=== PATIENT | female | born 1950 | race African-American/Black ===

== ENCOUNTER 2017-07-31 10:21 | Inpatient (IN) | payer OTHER ==
[~2017-07-31] VITALS: Ht 157.5 cm; Wt 89.3 kg
--- NOTE | 2017-07-31 11:07 | ERD ---
ER Documentation Chief Complaint Chief Complaint sob HPI The patient is a 67-year-old female, presenting to the ER because of pleuritic chest pain for 1 day, worse when she lays down. She denies similar symptoms previously, denies fever, chills, neck pain, chest pain with exertion/vomiting/ diaphoresis, abdominal pain, vomiting, dysuria, diarrhea. She is unable to lay down flat without having shortness of breath.She denies paroxysmal nocturnal dyspnea. She does not smoke nor drink Past medical history: Hypertension, hypothyroidism Past Surgical history left breast lumpectomy ROS All systems reviewed and are negative except as per history of present illness. Medications Home Meds Reported Medications Metoprolol Succinate* (Toprol XL*) 100 Mg Tab.sr.24h, 100 MG PO DAILY, #30 TAB 07/31/17 Levothyroxine Sodium* (Synthroid*) 125 Mcg Tablet, 125 MCG PO BEFORE BREAKFAST, #30 TAB 07/31/17 Allergies Allergies: Coded Allergies: No Known Allergy (Unverified , 07/31/17) Physical Exam Vitals Vital Signs Date Time Temp Pulse Resp B/P Pulse Ox O2 Delivery O2 Flow Rate FiO2 07/31/17 15:40 94 20 148/92 99 Nasal Cannula 2.0 07/31/17 12:40 88 22 157/90 98 Room Air 07/31/17 11:14 87 21 148/88 100 Room Air 07/31/17 10:34 100.0 89 18 183/93 98 Physical Exam Const: No acute distress. Head: Atraumatic. Eyes: Normal Conjunctiva. ENT: Normal External Ears, Nose and Mouth. Neck: Full range of motion. No meningismus. Resp: Bibasilar crackle Cardio: Regular rate and rhythm. Abd: Soft, non distended, normal bowel sounds, non tender. Skin: No petechiae or rashes. Back: No midline or flank tenderness. Ext: No cyanosis, or edema. No calf tenderness Neur: Awake and alert. No focal deficit Psych: Normal Mood and Affect. Result Diagram: 07/31/17 1114 07/31/17 1114 Results 24 hrs Laboratory Tests Test 07/31/17 11:14 White Blood Count 10.910^3/ul Red Blood Count 4.0210^6/ul Hemoglobin 11.9g/dl Hematocrit 37.8% Mean Corpuscular Volume 94.0fl Mean Corpuscular Hemoglobin 29.6pg Mean Corpuscular Hemoglobin Concent 31.5g/dl Red Cell Distribution Width 13.0% Platelet Count 77969^3/UL Mean Platelet Volume 9.0fl Neutrophils % 72.3% Lymphocytes % 19.9% Monocytes % 6.6% Eosinophils % 0.6% Basophils % 0.3% Nucleated Red Blood Cells % 0.0/100WBC Neutrophils # 7.910^3/ul Lymphocytes # 2.210^3/ul Monocytes # 0.710^3/ul Eosinophils # 0.110^3/ul Basophils # 0.010^3/ul Nucleated Red Blood Cells # 0.010^3/ul Prothrombin Time 12.8Sec Prothrombin Time Ratio 1.0 INR International Normalized Ratio 0.96 Activated Partial Thromboplast Time 32.0Sec D-Dimer 1596.39ng/ml D-Dimer Comment Sodium Level 144mmol/L Potassium Level 3.3mmol/L Chloride Level 104mmol/L Carbon Dioxide Level 30mmol/L Anion Gap 13 Blood Urea Nitrogen 10mg/dl Creatinine 1.06mg/dl Glucose Level 108mg/dl Calcium Level 9.1mg/dl Troponin I < 0.012ng/ml B-Type Natriuretic Peptide 417PG/ML Current Medications Medications (Trade) Dose Ordered Sig/Artem Route PRN Reason Start Time Stop Time Status Last Admin Dose Admin Potassium Chloride (Klor-Con 20) 40 meq ONCE STAT PO 07/31/17 13:09 07/31/17 13:10 DC 07/31/17 14:10 Potassium Chloride (Klor-Con 20) 20 meq ONCE STAT PO 07/31/17 13:09 07/31/17 13:10 DC 07/31/17 14:10 Furosemide (Lasix) 40 mg ONCE ONCE IV 07/31/17 13:30 07/31/17 13:31 DC 07/31/17 14:11 IV Flush 10 ml 10 ml STK-MED ONCE .ROUTE 07/31/17 13:41 07/31/17 13:42 DC 07/31/17 14:06 Sodium Chloride 100 ml @ ud STK-MED ONCE .ROUTE 07/31/17 13:41 07/31/17 13:42 DC 07/31/17 14:07 Iohexol (Omnipaque) 100 ml @ ud STK-MED ONCE .ROUTE 07/31/17 13:41 07/31/17 13:42 DC 07/31/17 14:07 Aspirin (Ecotrin) 325 mg ONCE ONCE PO 07/31/17 15:00 07/31/17 15:01 DC 07/31/17 15:22 Procedures/MDM [place] [id number] Radiology Main Line: [phone] DIAGNOSTIC IMAGING REPORT Patient: ROSA MARIA HERNANDEZ : 1950 Age: 67 Sex: F MR #: [id number] DOS: 07/31/17 1117 Ordering MD: VIKAS LIVINGSTON MD Location: E/R Room/Bed: PROCEDURE: Chest x-ray CLINICAL INDICATION: Shortness of breath TECHNIQUE: Chest single view COMPARISON: None FINDINGS: The heart is top normal in size. Pulmonary vessels are borderline prominent. There is minimal left lower lobe atelectasis. Lungs otherwise clear. No large pleural fluid is identified. Bony thorax is unremarkable. IMPRESSION: 1. Heart top normal in size. 2. Central pulmonary vessels borderline prominent. Recommend correlation for vascular congestion 3. Minimal left lower lobe atelectasis RPTAT: HH .Andrea Friedman MD, MD Date Time Electronically viewed and signed by .Andrea Friedman MD, MD on 07/31/2017 12:00 .W/ CC: VIKAS LIVINGSTON MD EK hrs. Read by emergency physician Rate/Rhythm: Normal Sinus Rhythm 86 beats/min QRS, ST, T-waves: No ST elevation, nonspecific T abnormality Impression: Abnormal EKG EK hrs. Read by emergency physician Rate/Rhythm: Normal Sinus Rhythm 87 beats/min QRS, ST, T-waves: No ST elevation, nonspecific T abnormality Impression: MEDICAL MAKING DECISION: The patient is a 67-year-old female, presenting to the ER because of acute CHF, acute hypokalemia. She was treated with Lasix 40 mg IV for acute CHF and potassium chloride 60 mg p.o. for acute hypokalemia, Aspirin 325 mg p.o. for acute chest pain with good response. The differential diagnoses considered include but are not limited to ACS,asthma , COPD, pneumonia, pulmonary embolus, pleural effusion, congestive heart failure. Departure Diagnosis: Primary Impression: CHF (congestive heart failure) Additional Impressions: Chest pain Hypokalemia Anemia Condition: Stable Comments I discussed the findings with the patient. I discussed the patient with her physician Dr. Bingham who was made aware of the lab, the treatment, the patient condition. The patient is admitted to [facility] at 2:25 pm VIKAS LIVINGSTON MD Jul 31, 2017 11:07
[2017-07-31] MEDS ORDERED: LEVO125T PO (11:59)
[2017-07-31] MEDS ORDERED: METO-336 PO (11:59)
--- NOTE | 2017-07-31 12:01 | RADRPT ---
PROCEDURE: Chest x-ray CLINICAL INDICATION: Shortness of breath TECHNIQUE: Chest single view COMPARISON: None FINDINGS: The heart is top normal in size. Pulmonary vessels are borderline prominent. There is minimal left l ower lobe atelectasis. Lungs otherwise clear. No large pleural fluid is identified. Bony thorax is u nremarkable. IMPRESSION: 1. Heart top normal in size. 2. Central pulmonary vessels borderline prominent. Recommend correlation for vascular congestion 3. Minimal left lower lobe atelectasis RPTAT: HH .Andrea Friedman MD, MD Date Time Electronically viewed and signed by .Andrea Friedman MD, on 07/31/2017 12:00 .W/
[2017-07-31 12:13] LABS: BASOPHILS % 0.3 % (0.0-2.0); EOSINOPHILS # 0.1 10^3/ul (0.0-0.5); EOSINOPHILS % 0.6 % (0.0-7.0); HEMATOCRIT 37.8 % (37.0-47.0); HEMOGLOBIN 11.9 g/dl (12.0-16.0); LYMPHOCYTES # 2.2 10^3/ul (0.8-2.9); LYMPHOCYTES % 19.9 % (15.0-51.0); MEAN CORPUSCULAR HEMOGLOBIN 29.6 pg (29.0-33.0); MEAN CORPUSCULAR HGB CONC 31.5 g/dl (32.0-37.0); MONOCYTE # 0.7 10^3/ul (0.3-0.9); MONOCYTES % 6.6 % (0.0-11.0); NEUTROPHIL # 7.9 10^3/ul (1.6-7.5); NEUTROPHILS % 72.3 % (39.0-77.0); PLATELET COUNT 252 10^3/UL (140-415); RED BLOOD COUNT 4.02 10^6/ul (4.20-5.40); WHITE BLOOD COUNT 10.9 10^3/ul (4.8-10.8)
[2017-07-31 12:36] LABS: ANION GAP 13 (8-16); BLOOD UREA NITROGEN 10 mg/dl (7-20); CALCIUM 9.1 mg/dl (8.4-10.2); CARBON DIOXIDE 30 mmol/L (21-31); CHLORIDE 104 mmol/L (97-110); CREATININE 1.06 mg/dl (0.44-1.00); GLUCOSE 108 mg/dl (70-220); INR 0.96; POTASSIUM 3.3 mmol/L (3.5-5.1); PROTIME 12.8 Sec (12.2-14.2); SODIUM 144 mmol/L (135-144)
[2017-07-31 12:47] LABS: B-TYPE NATRIURETIC PEPTIDE 417 PG/ML (0-125)
[2017-07-31 12:51] LABS: D-DIMER 1596.39 ng/ml (<460)
[2017-07-31 12:53] LABS: TROPONIN-I < 0.012 ng/ml (0.00-0.12)
[2017-07-31] MEDS ORDERED: POTASSIUM CHLORIDE (SR) 20 MEQ TAB PO STA ×2 (13:09)
[2017-07-31] MEDS ORDERED: FUROSEMIDE 40 MG INJ IV ONE (13:30)
[2017-07-31] MEDS ORDERED: SOD CHLORIDE 0.9% 100 ML ONE (13:41)
[2017-07-31] MEDS ORDERED: IOHEXOL 100 ML ONE (13:41)
--- NOTE | 2017-07-31 14:13 | RADRPT ---
PROCEDURE: CTA Chest and pulmonary angiogram. CLINICAL INDICATION: Chest pain and shortness of breath.. TECHNIQUE: CT scan of the chest and CT pulmonary angiogram was performed on the multi-slice volume tric CT scanner. High-resolution thin slice coronal and sagittal imaging was obtained from the axia l source images following the uncomplicated intravenous administration of 95 cc of Omnipaque 350 con trast. The images were reviewed on a PACS workstation. 3-D post-processing performed. DLP = 608.2 mGy-cm. CTDIVol = 17.6, 18.1 mGy. One or more of the following dose reduction techniques were used: Automated exposure control. Adjustment of the mA and/or kV according to patient size. Use of iterative reconstruction technique. COMPARISON: No prior studies are available for comparison. FINDINGS: CT chest: The lungs are clear of acute infiltrates, edema or masses. There is trace right pleural effusion and bilateral basilar atelectasis.. Mediastinum and hilum show no significant mass or adenopathy. The vascular structures of the mediastinum are normal in course and caliber. The heart size is borderl ine large without pericardial thickening or effusion. The axillary, subpectoral, and supraclavicula r regions are unremarkable. Imaging obtained through the upper abdomen is equally unremarkable. Th e adrenal glands are symmetrically normal. Chest wall is unremarkable. The spine is unremarkable. CT pulmonary angiogram: The main pulmonary artery, bilateral pulmonary arterial trunks, lobar and segmental branches of the pulmonary arteries show no evidence of filling defect and/or pulmonary emboli. The aorta is normal in caliber without aneurysm or dissection. IMPRESSION: 1. No evidence of pulmonary emboli, aortic aneurysm or dissection.. 2. Trace right pleural effusion and bibasilar atelectasis.. RPTAT: GG .Morris Alvarez MD, MD Date Time Electronically viewed and signed by .Morris Alvarez MD, MD on 07/31/2017 14:12 .L/
[2017-07-31] MEDS ORDERED: ASPIRIN (EC) 325 MG TAB PO ONE (15:00)
[2017-07-31 17:15] VITALS: PULSE 98
[2017-07-31 17:30] VITALS: BP 144/82; PULSE 90; RESP 20; BMI 36.0
[2017-07-31] MEDS ORDERED: LORAZEPAM 0.5 MG TAB PO PRN (18:30)
[2017-07-31] MEDS ORDERED: NITROGLYCERIN (SL) 0.4 MG TAB SL PRN (18:30)
[2017-07-31] MEDS ORDERED: MAGNESIUM HYDROXIDE 30ML CUP PO PRN (18:30)
[2017-07-31] MEDS ORDERED: ONDANSETRON 4 MG INJ IV PRN (18:30)
[2017-07-31] MEDS ORDERED: DOCUSATE SODIUM 100 MG CAP PO PRN (18:30)
[2017-07-31] MEDS ORDERED: ACETAMINOPHEN 325 MG TAB PO PRN (18:30)
[2017-07-31] MEDS ORDERED: BISACODYL 10 MG SUPP PR PRN (18:30)
[2017-07-31] MEDS ORDERED: NACL 0.9% 3 ML SYG IV SCH (18:30)
--- NOTE | 2017-07-31 18:35 | HP ---
Date/Time of Note Date/Time of Note DATE: 07/31/17 TIME: 18:35 Assessment/Plan VTE Prophylaxis VTE Prophylaxis Intervention: LMWH Assessment/Plan Assessment/Plan 67-year-old female with: 1. Atypical, pleuritic, right-sided chest pain for 1 day, CT of the chest negative for PE however showing a small right pleural effusion that could be causing some pleurisy. Continue pain control We will complete rule out for acute coronary syndrome, 2D echocardiogram also pending. Monitor heart rate and blood pressure, reintroduce blood pressure medications as needed. Check fasting lipid panel, TSH, free T4. 2. Right lower extremity edema, check Doppler of the lower extremity to rule out DVT. 3. Renal insufficiency, hypokalemia acute kidney injury versus chronic kidney disease, patient also has been on multiple medication including hydrochlorothiazide according to family, she may be having some prerenal azotemia. Of note she was given Lasix in the emergency department today. She was also given potassium supplementation. We will check her renal function in a.m. to reevaluate. 4. Hypertension: We will resume medications by a.m., will resume beta-blockers first, patient was on other additional medication for blood pressure control including diuretics. 5. Hypothyroidism: Recheck thyroid function testing, continue current levothyroxine dose Prophylaxis: Lovenox for DVT prophylaxis, Pepcid for GI prophylaxis Disposition: Follow-up additional imaging ordered, follow-up additional laboratory data in a.m. If no acute finding likely discharge home tomorrow. HPI/ROS Admit Date/Time Admit Date/Time Jul 31, 2017 at 14:40 Hx of Present Illness Chief complaint: Chest pain History of presenting illness: This is 67-year-old female with history of hypertension, hypothyroidism, noncompliance with blood pressure medications who presented to the emergency department with acute onset of right-sided pleuritic chest pain yesterday. The pain seems to be worse when she is lying down, patient also reports some orthopnea. Patient reports that it is a sharp pain, right-sided. No nausea, vomiting, fevers, chills, or diaphoresis She has no previous history of coronary artery disease or congestive heart failure. Her BNP was in the 400s, she did receive Lasix 1 dose. She also reports right lower extremity edema. Her d-dimer came back elevated therefore she had a CT angiogram done in the ER which ruled out pulmonary embolus, there is no described other pulmonary abnormalities per se. Dopplers of the lower extremities are pending. Cardiac enzymes are negative 1, 2 more sets are pending. Will monitor blood pressure again patient has not been compliant with any of her blood pressure medications. Will resume her Toprol XL in the morning if needed. She was noted to have low-grade temperature today with a T-max of 100.6, Tylenol as needed, check ESR. Also recheck her thyroid function testing. 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 No history of coronary artery disease. ROS Constitutional: no complaints Respiratory: no complaints Cardiovascular: chest pain (Pleuritic), orthopenea Gastrointestinal: no complaints Genitourinary: no complaints Musculoskeletal: no complaints Skin: no complaints Neurologic: no complaints Endocrine: no complaints PMH/Family/Social Past Medical History Hypertension, noncompliant with medications except for maybe Toprol-XL Hypothyroidism Past Surgical History Status post tubal ligation, remotely Family History Significant Family History: no pertinent family hx Social History Alcohol Use: none Smoking Status: Never smoker Drug Use: none Exam/Review of Systems Vital Signs Vitals Vital Signs Date Time Temp Pulse Resp B/P Pulse Ox O2 Delivery O2 Flow Rate FiO2 07/31/17 17:15 98 07/31/17 15:40 20 148/92 99 Nasal Cannula 2.0 07/31/17 10:34 100.0 Exam Constitutional: alert, oriented, well developed Respiratory: clear to auscultation, normal air movement Cardiovascular: nl pulses, regular rate and rhythm Gastrointestinal: non-tender, soft Musculoskeletal: swelling (Slight noted edema of the right lower extremity) Extremities: normal pulses Neurological: COMPRESSED GAS TESTER II-XII intact, nl mental status, nl speech, nl strength Labs Result Diagram: 07/31/17 1114 07/31/17 1114 Procedures Procedures PROCEDURE: CTA Chest and pulmonary angiogram. CLINICAL INDICATION: Chest pain and shortness of breath.. TECHNIQUE: CT scan of the chest and CT pulmonary angiogram was performed on the multi-slice volumetric CT scanner. High-resolution thin slice coronal and sagittal imaging was obtained from the axial source images following the uncomplicated intravenous administration of 95 cc of Omnipaque 350 contrast. The images were reviewed on a PACS workstation. 3-D post-processing performed. DLP = 608.2 mGy-cm. CTDIVol = 17.6, 18.1 mGy. One or more of the following dose reduction techniques were used: Automated exposure control. Adjustment of the mA and/or kV according to patient size. Use of iterative reconstruction technique. COMPARISON: No prior studies are available for comparison. FINDINGS: CT chest: The lungs are clear of acute infiltrates, edema or masses. There is trace right pleural effusion and bilateral basilar atelectasis.. Mediastinum and hilum show no significant mass or adenopathy. The vascular structures of the mediastinum are normal in course and caliber. The heart size is borderline large without pericardial thickening or effusion. The axillary, subpectoral, and supraclavicular regions are unremarkable. Imaging obtained through the upper abdomen is equally unremarkable. The adrenal glands are symmetrically normal. Chest wall is unremarkable. The spine is unremarkable. CT pulmonary angiogram: The main pulmonary artery, bilateral pulmonary arterial trunks, lobar and segmental branches of the pulmonary arteries show no evidence of filling defect and/or pulmonary emboli. The aorta is normal in caliber without aneurysm or dissection. IMPRESSION: 1. No evidence of pulmonary emboli, aortic aneurysm or dissection.. 2. Trace right pleural effusion and bibasilar atelectasis.. PROCEDURE: Chest x-ray CLINICAL INDICATION: Shortness of breath TECHNIQUE: Chest single view COMPARISON: None FINDINGS: The heart is top normal in size. Pulmonary vessels are borderline prominent. There is minimal left lower lobe atelectasis. Lungs otherwise clear. No large pleural fluid is identified. Bony thorax is unremarkable. IMPRESSION: 1. Heart top normal in size. 2. Central pulmonary vessels borderline prominent. Recommend correlation for vascular congestion 3. Minimal left lower lobe atelectasis RPTAT: HH .Andrea Friedman MD, Date Time Electronically viewed and signed by .Andrea Friedman MD, on 07/31/2017 12:00 EKG: Normal sinus rhythm, nonspecific T-wave, no acute or chronic ischemic changes. YFN BARRON Jul 31, 2017 18:35
[2017-07-31 18:55] VITALS: Ht 157.5 cm; Wt 89.3 kg
[2017-07-31 19:30] LABS: CREATINE KINASE 82 IU/L (23-200)
[2017-07-31 19:45] LABS: CK-MB < 0.22 ng/ml (0.0-2.4); TROPONIN-I < 0.012 ng/ml (0.00-0.12)
[2017-07-31 20:00] VITALS: BP 123/75; RESP 20
[2017-07-31 20:51] VITALS: PULSE 96
--- NOTE | 2017-07-31 21:11 | RADRPT ---
PROCEDURE: US DVT. CLINICAL INDICATION: Bilateral lower extremity pain and swelling. TECHNIQUE: Multiple longitudinal and transverse images of the bilateral lower extremity veins were obtained with bellamy scale and color Doppler imaging. 2D grayscale measurements with compression, co aneesh Doppler flow, and augmentation was performed. The calf veins were interrogated as well. COMPARISON: No prior studies are available for comparison. FINDINGS: The bilateral common femoral, superficial femoral and popliteal veins are normally compressible thro ughout. Color flow demonstrates normal filling of the vessel. Normal waveforms are visualized and there is normal response to augmentation. The calf veins are visualized and are equally unremarkabl e. IMPRESSION: 1. No evidence of a deep vein thrombosis involving either lower extremity. RPTAT: HFN .Kirill Ballard MD, Date Time Electronically viewed and signed by .Kirill Ballard MD, MD on 07/31/2017 21:11 .N/
[2017-07-31] MEDS: FAMOTIDINE 20 MG TAB PO SCH (22:44)
[2017-07-31] MEDS: METOPROLOL 50 MG TAB PO SCH (22:47)
[2017-08-01] VITALS (12 sets, daily range): BP systolic 108–132; BP diastolic 65–81; PULSE 71–88; RESP 17–20
[2017-08-01 01:38] LABS: CREATINE KINASE 71 IU/L (23-200)
[2017-08-01 02:09] LABS: CK-MB < 0.22 ng/ml (0.0-2.4); TROPONIN-I < 0.012 ng/ml (0.00-0.12)
[2017-08-01] MEDS: LEVOTHYROXINE 125 MCG TAB PO SCH (07:00)
[2017-08-01 08:27] LABS: BASOPHILS % 0.3 % (0.0-2.0); EOSINOPHILS # 0.1 10^3/ul (0.0-0.5); EOSINOPHILS % 0.9 % (0.0-7.0); HEMATOCRIT 33.6 % (37.0-47.0); HEMOGLOBIN 11.1 g/dl (12.0-16.0); LYMPHOCYTES # 1.8 10^3/ul (0.8-2.9); LYMPHOCYTES % 21.3 % (15.0-51.0); MEAN CORPUSCULAR HEMOGLOBIN 30.8 pg (29.0-33.0); MEAN CORPUSCULAR VOLUME 93.3 fl (82.0-101.0); MEAN PLATELET VOLUME 9.1 fl (7.4-10.4); MONOCYTE # 0.8 10^3/ul (0.3-0.9); NEUTROPHIL # 5.9 10^3/ul (1.6-7.5); PLATELET COUNT 215 10^3/UL (140-415); WHITE BLOOD COUNT 8.6 10^3/ul (4.8-10.8)
[2017-08-01] MEDS: ASPIRIN 81 MG TAB PO SCH (08:38)
[2017-08-01] MEDS: FAMOTIDINE 20 MG TAB PO SCH ×2 (08:38→21:42)
[2017-08-01] MEDS: METOPROLOL 50 MG TAB PO SCH ×2 (08:38→21:42)
[2017-08-01] MEDS: ENOXAPARIN 40 MG/0.4 ML SYG SC SCH (08:39)
[2017-08-01 09:00] LABS: ALBUMIN 3.5 g/dl (3.3-4.9); ALBUMIN/GLOBULIN RATIO 0.92; BILIRUBIN,INDIRECT 0.8 mg/dl (0-1.1); BILIRUBIN,TOTAL 0.8 mg/dl (0.2-1.3); CALCIUM 8.9 mg/dl (8.4-10.2); CHOL/HDL RATIO 2.8 RATIO; CREATININE 1.12 mg/dl (0.44-1.00); MAGNESIUM 1.8 mg/dl (1.7-2.5); POTASSIUM 3.5 mmol/L (3.5-5.1); TOTAL PROTEIN 7.3 g/dl (6.1-8.1)
[2017-08-01] MEDS ORDERED: METOPROLOL (XL) 50 MG TAB PO SCH (09:00)
--- NOTE | 2017-08-01 13:59 | RADRPT ---
Echocardiogram Report Patient Name: ROSA MARIA HERNANDEZ Gender: Female Date: 1950 Study Date: 01-Aug-2017 Ball Point Splitter: Jayme Martins [facility] Location: 5558 Ref. Physician: ZANA BARRON Quality: Adequate Procedures: Transthoracic echocardiogram with complete 2D, M-Mode, and doppler examination. Indications: Evaluate Left Ventricular function. 2D/M Mode Doppler Measurement Value Normal Ranges Measurement Value Normal Ranges LVIDd 2D 4.8 3.5 - 5.6 cm AV Peak Ashwin 1.2 m/sec LVIDs 2D 2.8 2.1 - 4.1 cm AV Peak PG 6.2 mmHg LVPWd 2D 0.9 0.6 - 1.1 cm LVOT Peak Ashwin 0.9 m/sec IVSd 2D 0.9 0.6 - 1.1 cm LVOT Peak PG 3.6 mmHg AoR Diam 2D 3.2 2.0 - 3.7 cm MV E Peak Ashwin 0.5 m/sec EDV 2D 106.1 cm3 MV A Peak Ashwin 0.6 m/sec ESV 2D 22.9 cm3 MV E/A 0.9 LA Dimen 2D 2.3 2.3 - 4.0 cm MV Decel Time 157 msec MV Decel [place] 3 MV E/A 0.9 TR Peak Ashwin 2.6 m/sec TR Peak PG 27.7 mmHg RVSP 31.0 mmHg Findings Left Ventricle: Normal left ventricular systolic function. Normal left ventricular cavity size. Normal left ventricular wall thickness. Ejection fraction is visually estimated at 60 %. Tissue Doppler/Mitral Doppler indices are consistent with impaired relaxation (Stage I diastolic dysfunction). Right Ventricle: Normal right ventricular size. Normal right ventricular systolic function. Left Atrium: The left atrium is normal in size. Right Atrium: The right atrium is normal in size. Mitral Valve: Normal appearance of the mitral valve. Mild mitral annular calcification. Trace mitral regurgitation. Aortic Valve: Normal appearance of the aortic valve. No significant aortic stenosis or insufficiency. Tricuspid Valve: Normal appearance of the tricuspid valve. Estimated peak PA systolic pressure 31 mmHg. There is mild tricuspid regurgitation. Pulmonic Valve: Normal pulmonic valve appearance. There is trace pulmonic regurgitation. Pericardium: Normal pericardium with no significant pericardial effusion. Aorta: Normal aortic root. IVC: Normal size and normal respiratory collapse consistent with normal right atrial pressure. Conclusions 1.Normal left ventricular systolic function. Normal left ventricular cavity size. Normal left ventricular wall thickness. Ejection fraction is visually estimated at 60 %. Tissue Doppler/Mitral Doppler indices are consistent with impaired relaxation (Stage I diastolic dysfunction). 2.Normal right ventricular size. Normal right ventricular systolic function. 3.The left atrium is normal in size. 4.The right atrium is normal in size. 5.Normal appearance of the tricuspid valve. Estimated peak PA systolic pressure 31 mmHg. There is mild tricuspid regurgitation. 6.No significant valvular stenosis or regurgitation seen of remaining visualized valves. 7.Normal pericardium with no significant pericardial effusion. Electronically Signed By: Christopher López 01-Aug-2017 13:58:42 -0700 Patient Name: ROSA MARIA HERNANDEZ Study Date: 01-Aug-2017 [id number]
--- NOTE | 2017-08-01 15:56 | PN ---
Date/Time of Note Date/Time of Note DATE: 08/01/17 TIME: 15:55 Assessment/Plan VTE Prophylaxis VTE Prophylaxis Intervention: LMWH Lines/Catheters IV C[facility]ter Type (from [facility] Saline [facility] Urinary Cath still in place: No Assessment/Plan Assessment/Plan 67-year-old female with: 1. Atypical, pleuritic, right-sided chest pain for 1 day, then today patient is not reporting substernal chest pressure with some shortness of breath, no nausea, no vomiting, no fevers, no chills, just feels generally weak. Patient describes the episode of shortness of breath and chest pressure almost like anxiety episode as she describes it. However she is not anxious and she has no history of anxiety disorder. CTA of the chest negative for PE however showing a small right pleural effusion that could be causing some pleurisy. Continue pain control Cardiac enzymes negative 3, 2D echocardiogram within normal. Blood pressure is stable. TSH and free T4 close to normal, she is on Synthroid. 2. Right lower extremity edema, negative Doppler of the lower extremities. 3. Renal insufficiency, hypokalemia acute kidney injury versus chronic kidney disease, patient did get Lasix yesterday, creatinine slightly elevated. Monitor renal function, repeat BMP in a.m. 4. Hypertension: Blood pressure controlled on metoprolol. 5. Hypothyroidism: Continue levothyroxine. Prophylaxis: Lovenox for DVT prophylaxis, Pepcid for GI prophylaxis Disposition: Follow-up additional laboratory data in a.m. Discussed with cardiology and ordered for a Lexiscan in a.m. Also check CRP blood culture urine culture and PAYTON. If no acute finding likely discharge home tomorrow. Subjective 24 Hr Interval Summary Free Text/Dictation Patient again with low-grade temperature 100.9, ESR at 50, CRP pending, white blood cell count within normal, flu swab negative. Blood cultures urine culture sent. No shortness of breath, she is having chest wall pain on and off. Patient was having right-sided pleuritic pain yesterday, today she is reporting a substernal pressure. Cardiac enzymes have been negative at least 4 with an unchanged EKG. 2D echocardiogram is within normal. CT chest does show a small right pleural effusion and atelectasis right lower lobe, gaffney denies cough, she reports almost like bronchospastic episodes with shortness of breath and chest pressure transiently. 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, nl mental status, nl speech, nl strength Skin: nl turgor Results Result Diagram: 08/01/17 0741 08/01/17 0741 Results 24 hrs Laboratory Tests Test 07/31/17 18:54 07/31/17 19:36 08/01/17 01:08 08/01/17 07:41 Creatine Kinase 82 71 Creatine Kinase Index 0.3 0.3 Creatinine Kinase MB (Mass) < 0.22 < 0.22 Troponin I < 0.012 < 0.012 Erythrocyte Sedimentation Rate 50 H White Blood Count 8.6 # Red Blood Count 3.60 L Hemoglobin 11.1 L Hematocrit 33.6 L Mean Corpuscular Volume 93.3 Mean Corpuscular Hemoglobin 30.8 Mean Corpuscular Hemoglobin Concent 33.0 Red Cell Distribution Width 13.0 Platelet Count 215 Mean Platelet Volume 9.1 Neutrophils % 68.0 Lymphocytes % 21.3 Monocytes % 9.0 Eosinophils % 0.9 Basophils % 0.3 Nucleated Red Blood Cells % 0.0 Neutrophils # 5.9 Lymphocytes # 1.8 Monocytes # 0.8 Eosinophils # 0.1 Basophils # 0.0 Nucleated Red Blood Cells # 0.0 Sodium Level 140 Potassium Level 3.5 Chloride Level 101 Carbon Dioxide Level 31 Anion Gap 12 Blood Urea Nitrogen 13 Creatinine 1.12 H Glucose Level 114 Calcium Level 8.9 Magnesium Level 1.8 Total Bilirubin 0.8 Direct Bilirubin 0.00 Indirect Bilirubin 0.8 Aspartate Amino Transf (AST/SGOT) 23 Alanine Aminotransferase (ALT/SGPT) 30 Alkaline Phosphatase 76 Total Protein 7.3 Albumin 3.5 Globulin 3.80 H Albumin/Globulin Ratio 0.92 Triglycerides Level 57 Cholesterol Level 152 LDL Cholesterol, Calculated 88 HDL Cholesterol 53 Cholesterol/HDL Ratio 2.8 Thyroid Stimulating Hormone (TSH) 8.160 H Test 08/01/17 07:44 Free Thyroxine 0.98 Medications Medications Current Medications Levothyroxine Sodium (Synthroid) 125 mcg DAILY@06 PO Last administered on 08/01 07:00; Admin Dose 125 MCG; Start 08/01/17 at 06:00 Lorazepam (Ativan) 0.5 mg Q8H PRN PO ANXIETY; Start 07/31/17 at 18:30 Ondansetron HCl (Zofran Inj) 4 mg Q6H PRN IV NAUSEA AND/OR VOMITING; Start at 18:30 Aspirin (Aspirin) 81 mg DAILY PO Last administered on 08/01/17 08:38; Admin Dose 81 MG; Start 08/01/17 at 09:00 Nitroglycerin (Nitroglycerin (Sl Tab) 0.4 Mg) 1 tab Q5M PRN SL CHEST PAIN Last administered on 08/01/17 04:07; Admin Dose 1 TAB; Start 07/31/17 at 18:30 Acetaminophen (Tylenol Tab) 650 mg Q6H PRN PO PAIN LEVEL 1-3 OR FEVER; Start 07/31/17 at 18:30 Morphine Sulfate (morphine) 2 mg Q4H PRN IV PAIN LEVEL 7-10; Start 07/31/17 at 18:30 Docusate Sodium (Colace) 100 mg Q12H PRN PO CONSTIPATION; Start 07/31/17 at 18 :30 Magnesium Hydroxide (Milk Of Mag) 30 ml DAILY PRN PO CONSTIPATION; Start 07/31 at 18:30 Bisacodyl (Dulcolax Supp) 10 mg DAILY PRN [place] CONSTIPATION; Start 07/31/17 at 18:30 Famotidine (Pepcid) 20 mg Q12 PO Last administered on 08/01/17 08:38; Admin Dose 20 MG; Start 07/31/17 at 21:00 Enoxaparin Sodium (Lovenox) 40 mg DAILY SC Last administered on 08/01/17 08: 39; Admin Dose 40 MG; Start 08/01/17 at 09:00 Metoprolol Tartrate (Lopressor) 50 mg BID PO Last administered on 08/01/17 08 :38; Admin Dose 50 MG; Start 07/31/17 at 21:00 Procedures Procedures Echocardiogram Report Patient Name: ROSA MARIA HERNANDEZ Gender: Female Date: 1950 Study Date: 01-Aug-2017 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 Physician: ZANA BARRON Quality: Adequate Procedures: Transthoracic echocardiogram with complete 2D, M-Mode, and doppler examination. Indications: Evaluate Left Ventricular function. 2D/M Mode Doppler Measurement Value Normal Ranges Measurement Value Normal Ranges LVIDd 2D 4.8 3.5 - 5.6 cm AV Peak Ashwin 1.2 m/sec LVIDs 2D 2.8 2.1 - 4.1 cm AV Peak PG 6.2 mmHg LVPWd 2D 0.9 0.6 - 1.1 cm LVOT Peak Ashwin 0.9 m/sec IVSd 2D 0.9 0.6 - 1.1 cm LVOT Peak PG 3.6 mmHg AoR Diam 2D 3.2 2.0 - 3.7 cm MV E Peak Ashwin 0.5 m/sec EDV 2D 106.1 cm3 MV A Peak Ashwin 0.6 m/sec ESV 2D 22.9 cm3 MV E/A 0.9 LA Dimen 2D 2.3 2.3 - 4.0 cm MV Decel Time 157 msec MV Decel Chaves 3 MV E/A 0.9 TR Peak Ashwin 2.6 m/sec TR Peak PG 27.7 mmHg RVSP 31.0 mmHg Findings Left Ventricle: Normal left ventricular systolic function. Normal left ventricular cavity size. Normal left ventricular wall thickness. Ejection fraction is visually estimated at 60 %. Tissue Doppler/Mitral Doppler indices are consistent with impaired relaxation (Stage I diastolic dysfunction). Right Ventricle: Normal right ventricular size. Normal right ventricular systolic function. Left Atrium: The left atrium is normal in size. Right Atrium: The right atrium is normal in size. Mitral Valve: Normal appearance of the mitral valve. Mild mitral annular calcification. Trace mitral regurgitation. Aortic Valve: Normal appearance of the aortic valve. No significant aortic stenosis or insufficiency. Tricuspid Valve: Normal appearance of the tricuspid valve. Estimated peak PA systolic pressure 31 mmHg. There is mild tricuspid regurgitation. Pulmonic Valve: Normal pulmonic valve appearance. There is trace pulmonic regurgitation. Pericardium: Normal pericardium with no significant pericardial effusion. Aorta: Normal aortic root. IVC: Normal size and normal respiratory collapse consistent with normal right atrial pressure. Conclusions 1. Normal left ventricular systolic function. Normal left ventricular cavity size. Normal left ventricular wall thickness. Ejection fraction is visually estimated at 60 %. Tissue Doppler/Mitral Doppler indices are consistent with impaired relaxation (Stage I diastolic dysfunction). 2. Normal right ventricular size. Normal right ventricular systolic function. 3. The left atrium is normal in size. 4. The right atrium is normal in size. 5. Normal appearance of the tricuspid valve. Estimated peak PA systolic pressure 31 mmHg. There is mild tricuspid regurgitation. 6. No significant valvular stenosis or regurgitation seen of remaining visualized valves. 7. Normal pericardium with no significant pericardial effusion. Electronically Signed By: Christopher López 01-Aug-2017 13:58:42 -0700 YFN BARRON Aug 01, 2017 15:56
[2017-08-01] MEDS ORDERED: IBUPROFEN 600 MG TAB PO PRN (16:00)
[2017-08-01 16:38] LABS: ADD UMIC YES; UR ASCORBIC ACID NEGATIVE (NEGATIVE); UR BACTERIA FEW /HPF (NONE SEEN); UR BILIRUBIN (Dip) NEGATIVE (NEGATIVE); UR BLOOD (Dip) 1+ mg/dL (NEGATIVE); UR CLARITY CLEAR (CLEAR); UR COLOR YELLOW (YELLOW); UR GLUCOSE (Dip) NEGATIVE (NEGATIVE); UR KETONES (Dip) NEGATIVE (NEGATIVE); UR LEUKOCYTE ESTERASE (Dip) 3+ Leu/ul (NEGATIVE); UR NITRITE (Dip) NEGATIVE (NEGATIVE); UR RBC 5 /HPF (0-5); UR SPECIFIC GRAVITY (Dip) 1.011 (1.003-1.030); UR TOTAL PROTEIN (Dip) NEGATIVE (NEGATIVE); UR UROBILINOGEN (Dip) 1+ mg/dL (NEGATIVE)
[2017-08-01 17:49] LABS: CREATINE KINASE 64 IU/L (23-200)
[2017-08-01 18:00] LABS: C-REACTIVE PROTEIN 16.7 mg/dl (0.0-0.9); CK-MB < 0.22 ng/ml (0.0-2.4); TROPONIN-I < 0.012 ng/ml (0.00-0.12)
[2017-08-02] VITALS (9 sets, daily range): BP systolic 99–112; BP diastolic 57–70; PULSE 55–87; RESP 17–21
[2017-08-02] MEDS: morphine 2 MG INJ IV PRN ×2 (00:01→07:05)
[2017-08-02] MEDS: LEVOTHYROXINE 125 MCG TAB PO SCH ×2 (06:00→16:16)
[2017-08-02] MEDS: ENOXAPARIN 40 MG/0.4 ML SYG SC SCH (08:37)
[2017-08-02] MEDS: FAMOTIDINE 20 MG TAB PO SCH (08:38)
[2017-08-02] MEDS: METOPROLOL 50 MG TAB PO SCH (08:38)
[2017-08-02] MEDS: ASPIRIN 81 MG TAB PO SCH (08:38)
[2017-08-02 09:08] LABS: BASOPHILS % 0.1 % (0.0-2.0); EOSINOPHILS # 0.1 10^3/ul (0.0-0.5); EOSINOPHILS % 1.1 % (0.0-7.0); HEMATOCRIT 33.3 % (37.0-47.0); HEMOGLOBIN 10.9 g/dl (12.0-16.0); LYMPHOCYTES # 2.2 10^3/ul (0.8-2.9); MEAN CORPUSCULAR HEMOGLOBIN 30.6 pg (29.0-33.0); MEAN CORPUSCULAR HGB CONC 32.7 g/dl (32.0-37.0); MEAN CORPUSCULAR VOLUME 93.5 fl (82.0-101.0); MONOCYTE # 0.7 10^3/ul (0.3-0.9); MONOCYTES % 7.1 % (0.0-11.0); NEUTROPHIL # 6.5 10^3/ul (1.6-7.5); NEUTROPHILS % 68.3 % (39.0-77.0); PLATELET COUNT 225 10^3/UL (140-415); RED BLOOD COUNT 3.56 10^6/ul (4.20-5.40); RED CELL DISTRIBUTION WIDTH 12.8 % (11.5-14.5); WHITE BLOOD COUNT 9.5 10^3/ul (4.8-10.8)
[2017-08-02 09:27] LABS: CALCIUM 8.5 mg/dl (8.4-10.2); CREATININE 1.37 mg/dl (0.44-1.00); POTASSIUM 3.9 mmol/L (3.5-5.1)
[2017-08-02 09:32] LABS: MAGNESIUM 1.9 mg/dl (1.7-2.5); PHOSPHORUS 4.4 mg/dl (2.5-4.9)
[2017-08-02] MEDS ORDERED: LEVOFLOXACIN 500 MG TAB PO SCH (11:00)
[2017-08-02] MEDS ORDERED: REGADENOSON 0.4 MG/5 ML SYG ONE (11:38)
--- NOTE | 2017-08-02 13:42 | CONS ---
Date/Time of Note Date/Time of Note DATE: 08/02/17 TIME: 13:39 Assessment/Plan Assessment/Plan Additional Assessment/Plan Chest pain Preserved ejection fraction Hypertension Fevers -Patient symptoms initial right-sided no left-sided chest discomfort. Serial cardiac enzymes remain negative, ECG with no significant ischemic abnormalities. Nuclear cardiac perfusion study has been ordered. Consultation Date/Type/Reason Admit Date/Time Jul 31, 2017 at 14:40 Type of Consultation: cv Reason for Consultation Chest pain Hx of Present Illness This is a 67-year-old female who just multiple complaints including chest pain, fatigue, fevers, chills and body aches. Patient initially complaining of right- sided chest pain but then developed left-sided chest pain. Pain at times a sharp at times pressure-like. Movements does exacerbate symptoms as well as at times breathing as well. Cardiology consultation was requested. Respiratory: no complaints Cardiovascular: chest pain (Pleuritic), orthopenea Gastrointestinal: no complaints Genitourinary: no complaints Musculoskeletal: no complaints Skin: no complaints Neurologic: no complaints Past Medical History Medical History: hypertension Social History Alcohol Use: none Smoking Status: Never smoker Drug Use: none Exam/Review of Systems Vital Signs Vitals Vital Signs Date Time Temp Pulse Resp B/P Pulse Ox O2 Delivery O2 Flow Rate FiO2 08/02/17 12:12 84 08/02/17 08:00 Nasal Cannula 2.0 08/02/17 07:27 98.9 17 107/62 98 Intake and Output 08/01/17 08/01/17 08/02/17 15:00 23:00 07:00 Intake Total 800 ml Output Total 250 ml Balance 550 ml Exam No apparent distress Constitutional: alert, obese, oriented Head: normocephalic Respiratory: clear to auscultation, normal air movement Cardiovascular: other (S1-S2 heard), regular rate and rhythm Gastrointestinal: bowel sounds, non-tender, soft Musculoskeletal: other (Discomfort with palpation of chest wall) Extremities: edema Results Result Diagram: 08/02/17 0815 08/02/17 0814 Results 24 hrs Laboratory Tests Test 08/01/17 15:40 08/01/17 17:03 08/02/17 08:14 08/02/17 08:15 Urine Color YELLOW Urine Clarity CLEAR Urine pH 6.0 Urine Specific [place] 1.011 Urine Ketones NEGATIVE Urine Nitrite NEGATIVE Urine Bilirubin NEGATIVE Urine Urobilinogen 1+ H Urine Leukocyte Esterase 3+ H Urine Microscopic RBC 5 Urine Microscopic WBC 16 H Urine Bacteria FEW A Urine Hemoglobin 1+ H Urine Glucose NEGATIVE Urine Total Protein NEGATIVE Creatine Kinase 64 Creatine Kinase Index 0.3 Creatinine Kinase MB (Mass) < 0.22 Troponin I < 0.012 C-Reactive Protein 16.7 H Sodium Level 138 Potassium Level 3.9 Chloride Level 96 L Carbon Dioxide Level 31 Anion Gap 15 Blood Urea Nitrogen 16 Creatinine 1.37 H Glucose Level 115 Calcium Level 8.5 Phosphorus Level 4.4 Magnesium Level 1.9 White Blood Count 9.5 Red Blood Count 3.56 L Hemoglobin 10.9 L Hematocrit 33.3 L Mean Corpuscular Volume 93.5 Mean Corpuscular Hemoglobin 30.6 Mean Corpuscular Hemoglobin Concent 32.7 Red Cell Distribution Width 12.8 Platelet Count 225 Mean Platelet Volume 9.0 Neutrophils % 68.3 Lymphocytes % 23.0 Monocytes % 7.1 Eosinophils % 1.1 Basophils % 0.1 Nucleated Red Blood Cells % 0.0 Neutrophils # 6.5 Lymphocytes # 2.2 Monocytes # 0.7 Eosinophils # 0.1 Basophils # 0.0 Nucleated Red Blood Cells # 0.0 Medications Medications Current Medications Levothyroxine Sodium (Synthroid) 125 mcg DAILY@06 PO Last administered on 08/01 07:00; Admin Dose 125 MCG; Start 08/01/17 at 06:00 Lorazepam (Ativan) 0.5 mg Q8H PRN PO ANXIETY; Start 07/31/17 at 18:30 Ondansetron HCl (Zofran Inj) 4 mg Q6H PRN IV NAUSEA AND/OR VOMITING; Start at 18:30 Aspirin (Aspirin) 81 mg DAILY PO Last administered on 08/02/17 08:38; Admin Dose 81 MG; Start 08/01/17 at 09:00 Acetaminophen (Tylenol Tab) 650 mg Q6H PRN PO PAIN LEVEL 1-3 OR FEVER Last administered on 08/01/17 16:58; Admin Dose 650 MG; Start 07/31/17 at 18:30 Morphine Sulfate (morphine) 2 mg Q4H PRN IV PAIN LEVEL 7-10 Last administered on 08/02/17 07:05; Admin Dose 2 MG; Start 07/31/17 at 18:30 Docusate Sodium (Colace) 100 mg Q12H PRN PO CONSTIPATION; Start 07/31/17 at 18 :30 Magnesium Hydroxide (Milk Of Mag) 30 ml DAILY PRN PO CONSTIPATION; Start 07/31 at 18:30 Bisacodyl (Dulcolax Supp) 10 mg DAILY PRN [place] CONSTIPATION; Start 07/31/17 at 18:30 Famotidine (Pepcid) 20 mg Q12 PO Last administered on 08/02/17 08:38; Admin Dose 20 MG; Start 07/31/17 at 21:00 Enoxaparin Sodium (Lovenox) 40 mg DAILY SC Last administered on 08/02/17 08: 37; Admin Dose 40 MG; Start 08/01/17 at 09:00 Metoprolol Tartrate (Lopressor) 50 mg BID PO Last administered on 08/01/17 21 :42; Admin Dose 50 MG; Start 07/31/17 at 21:00 Ibuprofen (Motrin) 600 mg Q6H PRN PO PAIN AND/OR INFLAMMATION; Start 08/01/17 at 16:00 Levofloxacin (Levaquin) 500 mg DAILY PO ; Start 08/02/17 at 11:00 Procedures Procedures ECG with sinus rhythm, normal QRS duration, nonspecific ST abnormalities Christopher López DO Aug 02, 2017 13:42
--- NOTE | 2017-08-02 16:13 | RADRPT ---
PROCEDURE: Lexiscan myocardial perfusion study CLINICAL INDICATION: 67 -year-old patient complaining of chest pain. TECHNIQUE: Lexiscan 0.4 mg intravenously separate acquisition gated myocardial perfusion SPECT usi ng Tc 99m Myoview 32.1 mCi intravenously at stress and Tc-99m Myoview, 11.0 mCi intravenously at res t was performed using the rest/stress sequence. Poststress Myoview SPECT images were obtained in th e supine position. COMPARISON: No prior studies. FINDINGS: Perfusion images reveal no evidence of concerning perfusion defects. Lexiscan post stress gated SPECT images demonstrate no wall motion abnormalities. IMPRESSION: 1. No evidence of stress-induced ischemia. 2. No wall motion abnormalities. 3. The left ventricle ejection fraction at stress is 54%. A call report was made to Dr. López at 04:10 p.m. on August 02, 2017. RPTAT: HH .Alison Killian MD, MD Date Time Electronically viewed and signed by .Alison Killian MD, on 08/02/2017 16:12 .L/
--- NOTE | 2017-08-02 16:22 | PN ---
Date/Time of Note Date/Time of Note DATE: 08/02/17 TIME: 16:21 Assessment/Plan VTE Prophylaxis VTE Prophylaxis Intervention: SCD's Lines/Catheters IV C[facility]ter Type (from [facility] Saline Lock Urinary Cath still in place: No Assessment/Plan Assessment/Plan 67-year-old female with: 1. Atypical, pleuritic, right-sided chest pain for 1 day, then yesterday patient is reporting substernal chest pressure with some shortness of breath, no nausea, no vomiting, no fevers, no chills, just feels generally weak. Today patient feels well, much better. Stress test was done came back negative. She did have a low-grade temperature again overnight, urine cultures growing Streptococcus and a gram-negative akosua but small amount of colonies. No other source for his low-grade temperature beside potentially a viral process or autoimmune process, ESR and CRP are moderately elevated. Patient is otherwise hemodynamically stable and clinically stable to be discharged today. Empirically being treated with Levaquin for 6 more days for total of 7 days.. CTA of the chest negative for PE however showing a small right pleural effusion that could be causing some pleurisy. Continue pain control with NSAIDs as needed. Cardiac enzymes negative 3, 2D echocardiogram within normal. Blood pressure is stable. TSH and free T4 close to normal, she is on Synthroid. 2. Right lower extremity edema, negative Doppler of the lower extremities. 3. Renal insufficiency, hypokalemia acute kidney injury versus chronic kidney disease, patient did get Lasix yesterday, creatinine slightly elevated. Monitor renal function, repeat BMP in a.m. 4. Hypertension: Blood pressure controlled on metoprolol. 5. Hypothyroidism: Continue levothyroxine. Prophylaxis: Lovenox for DVT prophylaxis, Pepcid for GI prophylaxis Disposition: Discharge home today, follow-up with primary care physician within 1 week with repeat laboratory data as needed at that time. Subjective 24 Hr Interval Summary Free Text/Dictation Patient feels better today, stress test is negative, she has been afebrile all day. White blood cell count within normal. Likely with a viral syndrome. However given no urine culture with the few colonies of gram-negative rods and strep patient will be discharged on Levaquin for 5 days. Exam/Review of Systems Vital Signs Vitals Vital Signs Date Time Temp Pulse Resp B/P Pulse Ox O2 Delivery O2 Flow Rate FiO2 08/02/17 15:56 98.1 85 18 112/66 94 08/02/17 08:00 Nasal Cannula 2.0 Intake and Output 08/01/17 08/01/17 08/02/17 15:00 23:00 07:00 Intake Total 800 ml Output Total 250 ml Balance 550 ml Exam Constitutional: alert, oriented, well developed Respiratory: clear to auscultation, normal air movement Cardiovascular: nl pulses, regular rate and rhythm Gastrointestinal: non-tender, soft Musculoskeletal: nl extremities to inspection, nl gait and stance Extremities: normal pulses, other Neurological: COATER HELPER II-XII intact, nl mental status, nl speech, nl strength Results Result Diagram: 08/02/17 0815 08/02/17 0814 Results 24 hrs Laboratory Tests Test 08/01/17 17:03 08/02/17 08:14 08/02/17 08:15 Creatine Kinase 64 Creatine Kinase Index 0.3 Creatinine Kinase MB (Mass) < 0.22 Troponin I < 0.012 C-Reactive Protein 16.7 H Sodium Level 138 Potassium Level 3.9 Chloride Level 96 L Carbon Dioxide Level 31 Anion Gap 15 Blood Urea Nitrogen 16 Creatinine 1.37 H Glucose Level 115 Calcium Level 8.5 Phosphorus Level 4.4 Magnesium Level 1.9 White Blood Count 9.5 Red Blood Count 3.56 L Hemoglobin 10.9 L Hematocrit 33.3 L Mean Corpuscular Volume 93.5 Mean Corpuscular Hemoglobin 30.6 Mean Corpuscular Hemoglobin Concent 32.7 Red Cell Distribution Width 12.8 Platelet Count 225 Mean Platelet Volume 9.0 Neutrophils % 68.3 Lymphocytes % 23.0 Monocytes % 7.1 Eosinophils % 1.1 Basophils % 0.1 Nucleated Red Blood Cells % 0.0 Neutrophils # 6.5 Lymphocytes # 2.2 Monocytes # 0.7 Eosinophils # 0.1 Basophils # 0.0 Nucleated Red Blood Cells # 0.0 Imaging Free Text/Dictation PROCEDURE: Lexiscan myocardial perfusion study CLINICAL INDICATION: 67 -year-old patient complaining of chest pain. TECHNIQUE: Lexiscan 0.4 mg intravenously separate acquisition gated myocardial perfusion SPECT using Tc 99m Myoview 32.1 mCi intravenously at stress and Tc-99m Myoview, 11.0 mCi intravenously at rest was performed using the rest/stress sequence. Poststress Myoview SPECT images were obtained in the supine position. COMPARISON: No prior studies. FINDINGS: Perfusion images reveal no evidence of concerning perfusion defects. Lexiscan post stress gated SPECT images demonstrate no wall motion abnormalities. IMPRESSION: 1. No evidence of stress-induced ischemia. 2. No wall motion abnormalities. 3. The left ventricle ejection fraction at stress is 54%. A call report was made to Dr. López at 04:10 p.m. on August 02, 2017. RPTAT: HH .Alison Killian MD, MD Date Time Electronically viewed and signed by .Alison Killian MD, MD on 08/02/2017 16:12 Medications Medications Current Medications Levothyroxine Sodium (Synthroid) 125 mcg DAILY@06 PO Last administered on 08/02 16:16; Admin Dose 125 MCG; Start 08/01/17 at 06:00 Lorazepam (Ativan) 0.5 mg Q8H PRN PO ANXIETY; Start 07/31/17 at 18:30 Ondansetron HCl (Zofran Inj) 4 mg Q6H PRN IV NAUSEA AND/OR VOMITING; Start at 18:30 Aspirin (Aspirin) 81 mg DAILY PO Last administered on 08/02/17 08:38; Admin Dose 81 MG; Start 08/01/17 at 09:00 Acetaminophen (Tylenol Tab) 650 mg Q6H PRN PO PAIN LEVEL 1-3 OR FEVER Last administered on 08/01/17 16:58; Admin Dose 650 MG; Start 07/31/17 at 18:30 Morphine Sulfate (morphine) 2 mg Q4H PRN IV PAIN LEVEL 7-10 Last administered on 08/02/17 07:05; Admin Dose 2 MG; Start 07/31/17 at 18:30 Docusate Sodium (Colace) 100 mg Q12H PRN PO CONSTIPATION; Start 07/31/17 at 18 :30 Magnesium Hydroxide (Milk Of Mag) 30 ml DAILY PRN PO CONSTIPATION; Start 07/31 at 18:30 Bisacodyl (Dulcolax Supp) 10 mg DAILY PRN MD CONSTIPATION; Start 07/31/17 at 18:30 Famotidine (Pepcid) 20 mg Q12 PO Last administered on 08/02/17 08:38; Admin Dose 20 MG; Start 07/31/17 at 21:00 Enoxaparin Sodium (Lovenox) 40 mg DAILY SC Last administered on 08/02/17 08: 37; Admin Dose 40 MG; Start 08/01/17 at 09:00 Metoprolol Tartrate (Lopressor) 50 mg BID PO Last administered on 08/01/17 21 :42; Admin Dose 50 MG; Start 07/31/17 at 21:00 Ibuprofen (Motrin) 600 mg Q6H PRN PO PAIN AND/OR INFLAMMATION; Start 08/01/17 at 16:00 Levofloxacin (Levaquin) 500 mg DAILY PO Last administered on 08/02/17 16:15; Admin Dose 500 MG; Start 08/02/17 at 11:00 Procedures Procedures Echocardiogram Report Patient Name: ROSA MARIA HERNANDEZ Gender: Female Date: 1950 Study Date: 01-Aug-2017 [place] Hand: Jayme Martins RDCS Location: [id number] Ref. Physician: ZANA BARRON Quality: Adequate Procedures: Transthoracic echocardiogram with complete 2D, M-Mode, and doppler examination. Indications: Evaluate Left Ventricular function. 2D/M Mode Doppler Measurement Value Normal Ranges Measurement Value Normal Ranges LVIDd 2D 4.8 3.5 - 5.6 cm AV Peak Ashwin 1.2 m/sec LVIDs 2D 2.8 2.1 - 4.1 cm AV Peak PG 6.2 mmHg LVPWd 2D 0.9 0.6 - 1.1 cm LVOT Peak Ashwin 0.9 m/sec IVSd 2D 0.9 0.6 - 1.1 cm LVOT Peak PG 3.6 mmHg AoR Diam 2D 3.2 2.0 - 3.7 cm MV E Peak Ashwin 0.5 m/sec EDV 2D 106.1 cm3 MV A Peak Ashwin 0.6 m/sec ESV 2D 22.9 cm3 MV E/A 0.9 LA Dimen 2D 2.3 2.3 - 4.0 cm MV Decel Time 157 msec MV Decel [place] 3 MV E/A 0.9 TR Peak Ashwin 2.6 m/sec TR Peak PG 27.7 mmHg RVSP 31.0 mmHg Findings Left Ventricle: Normal left ventricular systolic function. Normal left ventricular cavity size. Normal left ventricular wall thickness. Ejection fraction is visually estimated at 60 %. Tissue Doppler/Mitral Doppler indices are consistent with impaired relaxation (Stage I diastolic dysfunction). Right Ventricle: Normal right ventricular size. Normal right ventricular systolic function. Left Atrium: The left atrium is normal in size. Right Atrium: The right atrium is normal in size. Mitral Valve: Normal appearance of the mitral valve. Mild mitral annular calcification. Trace mitral regurgitation. Aortic Valve: Normal appearance of the aortic valve. No significant aortic stenosis or insufficiency. Tricuspid Valve: Normal appearance of the tricuspid valve. Estimated peak PA systolic pressure 31 mmHg. There is mild tricuspid regurgitation. Pulmonic Valve: Normal pulmonic valve appearance. There is trace pulmonic regurgitation. Pericardium: Normal pericardium with no significant pericardial effusion. Aorta: Normal aortic root. IVC: Normal size and normal respiratory collapse consistent with normal right atrial pressure. Conclusions 1. Normal left ventricular systolic function. Normal left ventricular cavity size. Normal left ventricular wall thickness. Ejection fraction is visually estimated at 60 %. Tissue Doppler/Mitral Doppler indices are consistent with impaired relaxation (Stage I diastolic dysfunction). 2. Normal right ventricular size. Normal right ventricular systolic function. 3. The left atrium is normal in size. 4. The right atrium is normal in size. 5. Normal appearance of the tricuspid valve. Estimated peak PA systolic pressure 31 mmHg. There is mild tricuspid regurgitation. 6. No significant valvular stenosis or regurgitation seen of remaining visualized valves. 7. Normal pericardium with no significant pericardial effusion. Electronically Signed By: Christopher López 01-Aug-2017 13:58:42 -0700 Patient Name: ROSA MARIA HERNANDEZ YFN BARRON Aug 02, 2017 16:22
--- NOTE | 2017-08-02 16:41 | PDOCDIS ---
Discharge Instructions CONDITION Patient Condition: Stable HOME CARE INSTRUCTIONS: Special Diet: 2g ma ACTIVITY: Activity Restrictions: Slowly Increase Activity FOLLOW UP/APPOINTMENTS Follow-up Plan Follow-up with primary care physician within 1 week YFN BARRON Aug 02, 2017 16:41
[2017-08-02] MEDS ORDERED: LEVO500T72 PO (16:43)
[2017-08-02] MEDS ORDERED: METO-429 PO (16:43)
--- NOTE | 2017-08-03 14:49 | EN ---
Date/Time of Note Date/Time of Note DATE: 08/03/17 TIME: 14:46 Event Note Cardiology Cardiology Event Note Lexiscan nuclear ECG report 08/02/2017 This is a 67-year-old female with symptoms of chest pain Baseline ECG sinus rhythm at 75 bpm, nonspecific ST abnormalities Baseline blood pressure 117/74 Lexiscan was a medicine as per protocol Symptoms of nausea and shortness of breath which resolved in recovery Peak heart rate 89 Peak blood pressure 117/74 ECG no significant ECG changes, rare PVC ECG interpretation nonischemic The nuclear portion will be interpreted by radiology colleagues. Christopher López DO Aug 03, 2017 14:49
[2017-08-03 19:07] LABS: ANA SCREEN POSITIVE (NEGATIVE)
== END 2017-08-02 19:00 | disposition home or self-care (01) | DRG 292 ==
LOC: E/R 10:21 → MS4 14:40
PROVIDERS: ADMIT Internal Medicine; ATTEND Internal Medicine
DX: I13.0 Hypertensive heart and chronic kidney disease with heart failure and stage 1 through stage 4 chronic kidney disease, or unspecified chronic kidney disease (principal); N17.9 Acute kidney failure, unspecified; I50.9 Heart failure, unspecified; I12.0 Hypertensive chronic kidney disease with stage 5 chronic kidney disease or end stage renal disease; R07.81 Pleurodynia; E87.6 Hypokalemia; D64.9 Anemia, unspecified; E03.9 Hypothyroidism, unspecified; N18.9 Chronic kidney disease, unspecified
CPT/HCPCS: 36415; 71010; 71275; 78452; 80048; 80053; 80061; 81001; 82550; 82553; 83735; 83880; 84100; 84439; 84443; 84484; 85025; 85378; 85610; 85651; 85730; 86038; 86140; 87040; 87086; 87400; 93005; 93017; 93306; 93970; 96374; A9500; A9505; J1650; J1940; J2270; J2785; Q9967